=== PATIENT | female | born 1985 | race Caucasian/White ===

== ENCOUNTER 2017-03-14 08:33 | Emergency (ER) | payer BC ==
[~2017-03-14] VITALS: Ht 152.4 cm; Wt 73.5 kg
[2017-03-14] MEDS ORDERED: MORPHINE 4 MG/ML 1ML SYRINGE IV ONE (10:00)
[2017-03-14] MEDS ORDERED: NS 1,000 ML IV ONE (10:00)
[2017-03-14] MEDS ORDERED: ONDANSETRON 4MG/2ML VIAL (J2405) IV ONE (10:00)
[2017-03-14 10:02] LABS: BASO % 0.2 % (0.0-1.0); EOS % 0.4 % (0.0-3.0); LARGE UNSTAINED CELL # 0.1 K/mm3 (0.0-0.4); LARGE UNSTAINED CELL % 0.7 % (0.0-4.0); LYMPH # 0.4 K/mm3 (1.5-4.5); LYMPH % 5.2 % (24.0-44.0); MEAN CORPUSCULAR HEMOGLOBIN 32.7 pg (27.0-33.0); MEAN CORPUSCULAR HGB CONC 33.6 g/dl (32.0-36.5); MEAN CORPUSCULAR VOLUME 97.4 fl (80.0-96.0); MONO # 0.3 K/mm3 (0.0-0.8); MONO % 5.1 % (0.0-5.0); NEUTROPHILS % 88.5 % (36.0-66.0); PLATELET COUNT, AUTOMATED 303 k/mm3 (150-450); RED CELL DISTRIBUTION WIDTH 12.5 % (11.5-14.5); WHITE BLOOD COUNT 6.7 K/mm3 (4.0-10.0)
[2017-03-14 10:17] LABS: ALBUMIN 3.5 GM/DL (3.2-5.2); ALKALINE PHOSPHATASE 104 U/L (45-117); ALT/SGPT 21 U/L (12-78); AMYLASE 38 U/L (25-115); ANION GAP 11 MEQ/L (8-16); AST/SGOT 24 U/L (15-37); BILIRUBIN,DIRECT < 0.1 MG/DL (0.0-0.2); BILIRUBIN,TOTAL 0.4 MG/DL (0.2-1.0); BLOOD UREA NITROGEN 12 MG/DL (7-18); CALCIUM LEVEL 8.4 MG/DL (8.5-10.1); CARBON DIOXIDE LEVEL 24 MEQ/L (21-32); CHLORIDE LEVEL 108 MEQ/L (98-107); CREATININE FOR GFR 0.82 MG/DL (0.55-1.02); GLOMERULAR FILTRATION RATE > 60.0 (>60); GLUCOSE, FASTING 106 MG/DL (70-105); POTASSIUM SERUM 3.5 MEQ/L (3.5-5.1); SODIUM LEVEL 143 MEQ/L (136-145); TOTAL PROTEIN 7.4 GM/DL (6.4-8.2)
[2017-03-14 10:28] LABS: CONTROL LINE HCG INT CTR LINE PRESENT
[2017-03-14 10:32] LABS: MICROSCOPIC INDICATED? MAN YES (NO)
[2017-03-14 10:45] VITALS: BP 109/69
[2017-03-14] MEDS ORDERED: ZOFR4TAB3 PO (10:54)
[2017-03-14] MEDS ORDERED: CIPR500T89 PO (10:54)
[2017-03-14] MEDS ORDERED: CIPROFLOXACIN 500 MG TAB PO ONE (11:00)
[2017-03-14 12:51] LABS: BACTERIA, URINE LARGE AMOUNT; HYALINE CAST, URINE NONE SEEN /lpf (0-1); RBC, URINE 0-1 /hpf (0-3); SQUAMOUS EPITHELIAL CELL URINE MOD AMOUNT /hpf (SMALL AMT); WBC, URINE 20-30 /hpf (0-3)
[2017-03-14 12:52] LABS: MICROSCOPIC EXAM PERFORMED
== END 2017-03-14 11:27 | disposition home or self-care (01) ==
LOC: M ED 09:16
DX: N30.90 Cystitis, unspecified without hematuria (principal); N10 Acute pyelonephritis; E86.0 Dehydration
CPT/HCPCS: 80048; 80076; 81000; 82150; 83690; 84703; 85025; 96374; 96375; 99283; J2405

== ENCOUNTER → 2017-08-04 | Outpatient (REF) | payer BC ==
[~2017-08-04] MED LIST: CIPR-249 PO; CIPR500T3 PO; FERR325T16 PO; FLAG500T PO; NORCOTAB PO; ZOFR4TAB3 PO
== END ==
LOC: M LAB REF 12:19
PROVIDERS: ATTEND Nurse Practitioner Family
DX: R31.9 Hematuria, unspecified (principal)

== ENCOUNTER 2017-08-06 15:43 | Emergency (ER) | payer BC ==
[~2017-08-06] VITALS: Ht 152.4 cm; Wt 72.0 kg
[~2017-08-06 15:43] MED LIST changes: -CIPR500T3 PO; -FERR325T16 PO; -FLAG500T PO; -NORCOTAB PO
[2017-08-06] MEDS ORDERED: NS 1,000 ML IV ONE (17:15)
[2017-08-06 17:46] LABS: BASO % 0.6 % (0.0-1.0); EOS # 0.2 K/mm3 (0.0-0.50); EOS % 2.6 % (0.0-3.0); LARGE UNSTAINED CELL # 0.1 K/mm3 (0.0-0.4); LARGE UNSTAINED CELL % 1.8 % (0.0-4.0); LYMPH # 1.5 K/mm3 (1.5-4.5); LYMPH % 23.3 % (24.0-44.0); MEAN CORPUSCULAR HEMOGLOBIN 32.3 pg (27.0-33.0); MEAN CORPUSCULAR HGB CONC 34.2 g/dl (32.0-36.5); MEAN CORPUSCULAR VOLUME 94.5 fl (80.0-96.0); MONO # 0.2 K/mm3 (0.0-0.8); MONO % 3.8 % (0.0-5.0); NEUTROPHILS # 4.3 K/mm3 (1.8-7.7); NEUTROPHILS % 67.9 % (36.0-66.0); PLATELET COUNT, AUTOMATED 600 k/mm3 (150-450); RED CELL DISTRIBUTION WIDTH 12.8 % (11.5-14.5); WHITE BLOOD COUNT 6.3 K/mm3 (4.0-10.0)
[2017-08-06 18:05] LABS: CONTROL LINE HCG INT CTR LINE PRESENT
[2017-08-06 18:08] LABS: ANION GAP 5 MEQ/L (8-16); BLOOD UREA NITROGEN 11 MG/DL (7-18); CALCIUM LEVEL 9.2 MG/DL (8.5-10.1); CARBON DIOXIDE LEVEL 31 MEQ/L (21-32); CHLORIDE LEVEL 98 MEQ/L (98-107); GLOMERULAR FILTRATION RATE > 60.0 (>60); GLUCOSE, FASTING 90 MG/DL (70-105); POTASSIUM SERUM 3.7 MEQ/L (3.5-5.1); SODIUM LEVEL 134 MEQ/L (136-145)
[2017-08-06] MEDS ORDERED: CIPR500T3 PO (19:01)
[2017-08-06] MEDS ORDERED: FLAG500T PO (19:01)
[2017-08-06 19:06] VITALS: BP 147/95
== END 2017-08-06 19:12 | disposition home or self-care (01) ==
LOC: M ED 15:43
DX: R10.31 Right lower quadrant pain (principal); R11.0 Nausea; F41.9 Anxiety disorder, unspecified; F17.210 Nicotine dependence, cigarettes, uncomplicated

== ENCOUNTER 2017-09-17 18:33 | Inpatient (IN) | payer BC ==
[~2017-09-17] VITALS: Ht 152.4 cm; Wt 74.2 kg
[~2017-09-17 18:33] MED LIST changes: +CIPR500T3 PO; +FLAG500T PO
[2017-09-17] MEDS ORDERED: ONDANSETRON 4MG/2ML VIAL (J2405) IV ONE (19:45)
[2017-09-17] MEDS ORDERED: NS 1,000 ML IV ONE (19:45)
[2017-09-17] MEDS ORDERED: MORPHINE 4 MG/ML 1ML SYRINGE IV ONE ×2 (19:45→20:45)
[2017-09-17 19:46] LABS: BASO % 0.3 % (0.0-1.0); EOS % 0.5 % (0.0-3.0); IMMATURE GRANULOCYTE % 0.3 % (0-0); LYMPH # 1.5 10^3/uL (1.5-4.5); LYMPH % 18.6 % (24.0-44.0); MEAN CORPUSCULAR HEMOGLOBIN 31.9 pg (27.0-33.0); MEAN CORPUSCULAR HGB CONC 33.8 g/dl (32.0-36.5); MEAN CORPUSCULAR VOLUME 94.3 fl (80.0-96.0); MONO # 0.9 10^3/uL (0.0-0.8); MONO % 10.8 % (0.0-5.0); NEUTROPHILS # 5.5 10^3/uL (1.8-7.7); NEUTROPHILS % 69.5 % (36.0-66.0); PLATELET COUNT, AUTOMATED 324 10^3/uL (150-450); RED CELL DISTRIBUTION WIDTH 13.2 % (11.5-14.5); WHITE BLOOD COUNT 7.9 10^3/uL (4.0-10.0)
[2017-09-17 20:11] LABS: ALBUMIN/GLOBULIN RATIO 0.95 (1.00-1.93); ALKALINE PHOSPHATASE 96 U/L (45-117); ALT/SGPT 30 U/L (12-78); AMYLASE 55 U/L (25-115); ANION GAP 9 MEQ/L (8-16); AST/SGOT 23 U/L (7-37); BILIRUBIN,DIRECT 0.2 MG/DL (0.0-0.2); BILIRUBIN,TOTAL 0.6 MG/DL (0.2-1.0); BLOOD UREA NITROGEN 11 MG/DL (7-18); CARBON DIOXIDE LEVEL 26 MEQ/L (21-32); CHLORIDE LEVEL 101 MEQ/L (98-107); CREATININE FOR GFR 0.74 MG/DL (0.55-1.02); GLOMERULAR FILTRATION RATE > 60.0 (>60); GLUCOSE, FASTING 97 MG/DL (70-105); POTASSIUM SERUM 3.5 MEQ/L (3.5-5.1); SODIUM LEVEL 136 MEQ/L (136-145); TOTAL PROTEIN 8.2 GM/DL (6.4-8.2)
[2017-09-17 20:28] LABS: CONTROL LINE HCG INT CTR LINE PRESENT
[2017-09-17] MEDS ORDERED: METOCLOPRAMIDE INJ 10MG/2ML VIAL (J2765) IV ONE (20:45)
[2017-09-17] MEDS ORDERED: ISOVUE-370 76% 100ML VIAL (Q9967) As Ordered ONE (21:18)
--- NOTE | 2017-09-17 22:30 | REPUSA ---
CLINICAL HISTORY: Abdominal pain. TECHNIQUE: Multiple axial, sagittal and coronal CT images were obtained through the abdomen and pelvi s after administration of intravenous contrast material. COMMENTS: 6 mm hypodensity is noted in the right hepatic lobe compatible with small hemangioma. The liver is o f uniform attenuation without mass or defect. There is no intra or extrahepatic biliary ductal dilata tion. The spleen is normal. The gallbladder is within normal limits. The pancreas is of normal contou r and attenuation characteristics. There is no evidence of adrenal mass. Both kidneys demonstrate prompt and equal nephrograms. The kidneys are normal in size, shape and conf iguration. There is no evidence of renal or ureteral mass. No renal or ureteral calculi are identifie d. There is no hydroureter or hydronephrosis. Tubular fluid-filled structure is noted in the RLQ with adjacent stranding compatible with acute appe ndicitis. No abscess or rupture is noted. There is no bowel wall thickening. No evidence for small o r large bowel obstruction. There is no evidence of abdominal ascites or lymphadenopathy. There is no evidence of intrinsic or extrinsic bladder mass. There is no pelvic ascites or lymphadeno celeste. The uterus is WNL. Bilateral ovarial follicular cysts are noted. Images of the lung bases show no evidence of pleural or parenchymal mass. There are no pleural effusi ons. The bony structures are free of lytic or blastic lesions. IMPRESSION: Acute appendicitis. Thank you for your kind referral of this patient.
[2017-09-17] MEDS ORDERED: metroNIDAZOLE 500 MG in APPROPRIATE DILUENT 1 EA IV ONE (22:45)
[2017-09-17] MEDS ORDERED: CIPROFLOXACIN 400 MG in APPROPRIATE DILUENT 1 EA IV ONE (22:45)
[2017-09-17] MEDS ORDERED: MORPHINE 4 MG/ML 1ML SYRINGE IV PRN (23:00)
[2017-09-17] MEDS ORDERED: ONDANSETRON 4MG/2ML VIAL (J2405) IV PRN (23:00)
[2017-09-17] MEDS ORDERED: ACETAMINOPHEN TAB 650MG DOSE (2X325MG) PO PRN (23:00)
[2017-09-18] VITALS (8 sets, daily range): BP systolic 109–140; BP diastolic 64–93
[2017-09-18] MEDS: LR 1,000 ML IV SCH ×4 (02:00→19:46)
[2017-09-18] MEDS: NORCO, ANEXSIA 5/325MG TABLET (HYDROcodone/ACETAMINOPHEN) PO PRN ×2 (02:01→22:19)
[2017-09-18] MEDS: PANTOPRAZOLE 40MG INJ (PROTONIX) (C9113) IV SCH (08:29)
[2017-09-18] MEDS ORDERED: ENOXAPARIN 40 MG/0.4 ML SYRINGE (J1650) SC SCH (09:00)
--- NOTE | 2017-09-18 12:22 | HPEPDOC ---
General Surgery H&P Date of Admission Sep 17, 2017 History and Physical CHIEF COMPLAINT: right lower quadrant pain HISTORY OF PRESENT ILLNESS: 32 F who last summer had lower abdominal pain and was treated for UTI which resolved her pain with antibiotics. This would recur back in June when she presented herself to her medical doctor and she was re started on antibiotics. When it did not improve, a CT scan of the abdomen and pelvis was done where an inflamed appendix was visualized. She was sent to the ED but by the time she was there, her abdominal symptoms have resolved. She was seen by Dr. Riojas and was determined at least not to have an acutely inflamed appendix. She went home and had follow up with him with repeat CT showing improvement of the inflammation around the appendix. She remained asymptomatic. Interval appendectomy was discussed but was decided to hold off depending on her symptoms. She presented to the ER yesterday with a few hours of sudden onset right lower quadrant abdominal pain and nausea and presented herself to the ER. ALLERGIES: Please see below. HOME MEDICATIONS: Please see below. PAST MEDICAL HISTORY: None reported PAST SURGICAL HISTORY: Nose surgery PERSONAL/SOCIAL HISTORY: Denies smoking, alcohol use, or recreational drug use. REVIEW OF SYSTEMS: GENERAL: Denies chills, fatigue, fever, weight gain and weight loss. HEENT: Denies blurred vision and double vision. Denies ear symptoms. Denies hoarseness. NECK: Denies any neck pain. CARDIOVASCULAR: Denies chest pain and palpitations. MUSCULOSKELETAL: Denies arthralgias, back pain and thrombophlebitis. SKIN: Denies rash. NEUROLOGIC: Denies headache, stroke and transient ischemic attack. PSYCHIATRIC: Denies anxiety and depression. ENDOCRINE: Denies thyroid disease. HEMATOLOGY/ONCOLOGY: Denies any bleeding or clotting disorder. HEART: Denies any chest pains, palpitations, paroxysmal dyspnea, orthopnea. PULMONARY: Denies chronic cough, dyspnea and wheezing. GASTROINTESTINAL: Denies rectal bleeding, family history of colon cancer, constipation, diarrhea, dysphagia, heartburn and jaundice. GENITOURINARY: Denies dysuria, frequency, hematuria and nocturia. ENDOCRINE: Denies polydipsia, polyphagia, polyuria, heat or cold intolerance. INFECTIOUS: Denies any recent upper respiratory tract infection, UTI, need for use of antibiotics. NUTRITION: Reports good appetite. PHYSICAL EXAMINATION: VITAL SIGNS: Please see below. GENERAL APPEARANCE: Patient seen at bedside, appears comfortable. Awake, alert, oriented. HEENT: Normocephalic, atraumatic. [place] palpebral conjunctivae. Anicteric sclerae. Lips moist. CHEST: No chest wall abnormalities. Normal respiratory motion/effort. NECK: Supple. No thyromegaly. No lymphadenopathies. LUNGS: Lung sounds are clear to auscultation bilaterally. No wheezing appreciated. HEART: No chest wall abnormalities. Heart rate and rhythm are regular with no murmurs. ABDOMEN: Abdomen is obese, soft, slightly rounded. No hepatosplenomegaly. No umbilical or groin herniations, nondistended. Mildly tender around the right lower quadrant area SKIN: Warm, moist. Several scaly macular patches/rash throughout body EXTREMITIES: Extremities have no deformities. No edema identified. NEUROLOGICAL: . ANCILLARIES: . LABORATORY DATA: Please see below. MICROBIOLOGY: Please see below. IMAGING: CT scan of abdomen and pelvis Both kidneys demonstrate prompt and equal nephrograms. The kidneys are normal in size, shape and configuration. There is no evidence of renal or ureteral mass. No renal or ureteral calculi are identified. There is no hydroureter or hydronephrosis. Tubular fluid-filled structure is noted in the RLQ with adjacent stranding compatible with acute appendicitis. No abscess or rupture is noted. There is no bowel wall thickening. No evidence for small or large bowel obstruction. There is no evidence of abdominal ascites or lymphadenopathy. IMPRESSION AND PLAN: Chronic appendicitis Her symptoms have been ongoing intermittently for the past 3 months and probably was treated and responded transiently with antibiotics when she was given initial antibiotics for presumed UTI. Given that she would have intermittent symptoms, I recommend performing appendectomy. I discussed with her the details of the procedure, risks and benefits. Her concerns were addressed during my conversation with her. She has consented to have a laparoscopic appendectomy done. Vital Signs Vital Signs Date Time Temp Pulse Resp B/P (MAP) Pulse Ox O2 Delivery O2 Flow Rate FiO2 09/18/17 08:00 98.9 104 16 121/79 (93) 98 Room Air I&Os I&O- Last 24 Hours up to 6 AM 09/19/17 06:00 Intake Total 0 ml Balance 0 ml Laboratory Data Labs 24H Laboratory Tests 2 09/17/17 19:25: Immature Granulocyte % (Auto) 0.3H, White Blood Count 7.9, Red Blood Count 4.05 , Hemoglobin 12.9, Hematocrit 38.2, Mean Corpuscular Volume 94.3, Mean Corpuscular Hemoglobin 31.9, Mean Corpuscular Hemoglobin Concent 33.8, Red Cell Distribution Width 13.2, Platelet Count 324, Neutrophils (%) (Auto) 69.5H, Lymphocytes (%) (Auto) 18.6L, Monocytes (%) (Auto) 10.8H, Eosinophils (%) (Auto ) 0.5, Basophils (%) (Auto) 0.3, Neutrophils # (Auto) 5.5, Lymphocytes # (Auto) 1.5, Monocytes # (Auto) 0.9H, Eosinophils # (Auto) 0.0, Basophils # (Auto) 0.0, Immature Granulocyte # (Auto) 0.0, Nucleated Red Blood Cells % (auto) 0.0, Anion Gap 9, Glomerular Filtration Rate > 60.0, Lactic Acid Level 1.7, Calcium Level 9.0, Aspartate Amino Transf (AST/SGOT) 23, Alanine Aminotransferase (ALT/ SGPT) 30, Alkaline Phosphatase 96, Total Bilirubin 0.6, Direct Bilirubin 0.2, Total Protein 8.2, Albumin 4.0, Albumin/Globulin Ratio 0.95L, Amylase Level 55, Lipase 174, Human Chorionic Gonadotropin, Qual NEGATIVE 09/17/17 21:52: Urine Appearance CLOUDYH, Urine Color YELLOW, Urine pH 5.0, Urine Specific [place] >1.060H, Urine Protein NEGATIVE, Urine Glucose (UA) NEGATIVE, Urine Ketones 2+H, Urine Urobilinogen 0.2, Urine Bilirubin NEGATIVE, Urine Leukocyte Esterase NEGATIVE, Urine Blood NEGATIVE, Urine Nitrite NEGATIVE, Urine WBC (Auto ) 2, Urine RBC (Auto) 4H, Urine Hyaline Casts (Auto) 0, Urine Bacteria (Auto) NEGATIVE, Urine Squamous Epithelial Cells 111, Urine Mucus (Auto) SMALL, Urine Sperm (Auto) CBC/BMP Laboratory Tests 09/17/17 19:25 Red Blood Count 4.05, Mean Corpuscular Volume 94.3, Mean Corpuscular Hemoglobin 31.9, Mean Corpuscular Hemoglobin Concent 33.8, Red Cell Distribution Width 13.2 , Neutrophils (%) (Auto) 69.5 H, Lymphocytes (%) (Auto) 18.6 L, Monocytes (%) ( Auto) 10.8 H, Eosinophils (%) (Auto) 0.5, Basophils (%) (Auto) 0.3, Neutrophils # (Auto) 5.5, Lymphocytes # (Auto) 1.5, Monocytes # (Auto) 0.9 H, Eosinophils # (Auto) 0.0, Basophils # (Auto) 0.0 Home Medications No Active Prescriptions or Reported Meds Allergies Coded Allergies: No Known Drug Allergy (Verified Allergy, Unknown, 03/14/17) ZULEIKA SALGADO MD Sep 18, 2017 12:22
[2017-09-18] MEDS ORDERED: LIDOCAINE 1% SDV INJ 30 ML VIAL As Ordered ONE (12:57)
[2017-09-18] MEDS ORDERED: BUPIVACAINE HCL 0.25% 30 ML VIAL As Ordered ONE (12:57)
[2017-09-18] MEDS ORDERED: MIDAZOLAM INJ 2 MG/2 ML VIAL (J2250) As Ordered ONE (15:37)
[2017-09-18] MEDS ORDERED: fentaNYL 100 MCG/2 ML INJECTION (J3010) As Ordered ONE (15:37)
[2017-09-18] MEDS ORDERED: DESFLURANE 240 ML INHALANT As Ordered ONE (15:46)
[2017-09-18] MEDS ORDERED: metroNIDAZOLE/NACL 500MG(5MG/ML)100 ML BAG (S0030) As Ordered ONE (17:02)
[2017-09-18] MEDS ORDERED: CIPROFLOXACIN/D5W 400 MG/200 ML BAG (J0744) As Ordered ONE (17:02)
[2017-09-18] MEDS ORDERED: NEOSTIGMINE 10 MG/10 ML VIAL (J2710) As Ordered ONE (17:15)
[2017-09-18] MEDS ORDERED: GLYCOPYRROLATE INJ 0.2 MG/ML 2 ML VIAL As Ordered ONE (17:15)
[2017-09-18] MEDS ORDERED: HYDROmorphone HCL 2 MG/ML 1ML VIAL (J1170) As Ordered ONE (17:15)
--- NOTE | 2017-09-18 18:47 | ROOPDOC ---
[facility] Report Of Operation Report of Operation DATE OF PROCEDURE: 09/18/17 PREPROCEDURE DIAGNOSES: Acute over chronic appendicitis. POSTPROCEDURE DIAGNOSES: Chronic appendicitis. PROCEDURE: Laparoscopic appendectomy. SURGEON: Jorge Huang MD PROTOCOL MANAGER: Jorge Farias DO ANESTHESIA: general anesthesia ESTIMATED BLOOD LOSS: Approximately 50 mL. COMPLICATIONS: none REMARKS: Chronically inflamed appendix with thickened shortened mesal appendix. We had some difficulty controlling the abdomen mesal artery G to the brittleness of the mesal appendix.. PROCEDURE NOTE: 32 F with intermittent right lower qudrant pain for the past 3 months, presented to ER last night with recurrence of abdominal pain, swelling and inflammation of her appendix. Previously had CT documenting the swelling of the appendix for the past 2 months at least but was not symptomatic at that time so no surgery was done. DESCRIPTION OF PROCEDURE: ZULEIKA HUANG MD Sep 18, 2017 18:47
[2017-09-18] MEDS ORDERED: PERCOCET 5MG/325MG TAB PO PRN (19:00)
[2017-09-18] MEDS ORDERED: ALBUTEROL SULFATE 2.5 MG/0.5 ML INH NEB SOLN INH SCH (19:00)
[2017-09-18] MEDS ORDERED: fentaNYL 100 MCG/2 ML INJECTION (J3010) IV PRN (19:00)
[2017-09-18] MEDS ORDERED: METOCLOPRAMIDE INJ 10MG/2ML VIAL (J2765) IV PRN (19:00)
[2017-09-18] MEDS ORDERED: ONDANSETRON 4MG/2ML VIAL (J2405) IV PRN (19:00)
[2017-09-18] MEDS ORDERED: LR 1,000 ML IV SCH (19:00)
[2017-09-19] VITALS (7 sets, daily range): BP systolic 110–136; BP diastolic 61–77
[2017-09-19] MEDS: metroNIDAZOLE 500 MG in APPROPRIATE DILUENT 1 EA IV SCH ×3 (00:35→17:21)
[2017-09-19] MEDS: LR 1,000 ML IV SCH (03:21)
[2017-09-19] MEDS ORDERED: MAALOX 30 ML SUSP *UDC PO PRN (04:00)
[2017-09-19] MEDS: CIPROFLOXACIN 400 MG in APPROPRIATE DILUENT 1 EA IV SCH ×2 (04:18→16:15)
[2017-09-19] MEDS: NORCO, ANEXSIA 5/325MG TABLET (HYDROcodone/ACETAMINOPHEN) PO PRN ×3 (04:20→16:15)
[2017-09-19 06:45] LABS: BASO % 0.1 % (0.0-1.0); IMMATURE GRANULOCYTE % 0.7 % (0-0); LYMPH # 0.6 10^3/uL (1.5-4.5); LYMPH % 5.5 % (24.0-44.0); MEAN CORPUSCULAR HEMOGLOBIN 31.9 pg (27.0-33.0); MEAN CORPUSCULAR HGB CONC 33.5 g/dl (32.0-36.5); MEAN CORPUSCULAR VOLUME 95.3 fl (80.0-96.0); MONO # 0.9 10^3/uL (0.0-0.8); MONO % 7.7 % (0.0-5.0); PLATELET COUNT, AUTOMATED 292 10^3/uL (150-450); RED CELL DISTRIBUTION WIDTH 12.9 % (11.5-14.5); WHITE BLOOD COUNT 11.6 10^3/uL (4.0-10.0)
[2017-09-19 07:03] LABS: ANION GAP 12 MEQ/L (8-16); BLOOD UREA NITROGEN 11 MG/DL (7-18); CALCIUM LEVEL 8.7 MG/DL (8.5-10.1); CARBON DIOXIDE LEVEL 21 MEQ/L (21-32); CHLORIDE LEVEL 101 MEQ/L (98-107); CREATININE FOR GFR 0.67 MG/DL (0.55-1.02); GLOMERULAR FILTRATION RATE > 60.0 (>60); GLUCOSE, FASTING 127 MG/DL (70-105); SODIUM LEVEL 134 MEQ/L (136-145)
[2017-09-19] MEDS: PANTOPRAZOLE 40MG INJ (PROTONIX) (C9113) IV SCH (08:21)
[2017-09-19] MEDS ORDERED: INFLUENZA QUADRIVALENT PF VACCINE 0.5ML SYRINGE (90686) IM ONE (09:00)
[2017-09-20] VITALS (11 sets, daily range): BP systolic 112–135; BP diastolic 61–84
[2017-09-20] MEDS: metroNIDAZOLE 500 MG in APPROPRIATE DILUENT 1 EA IV SCH ×3 (00:44→18:34)
[2017-09-20] MEDS: CIPROFLOXACIN 400 MG in APPROPRIATE DILUENT 1 EA IV SCH ×2 (04:33→16:10)
[2017-09-20 06:21] LABS: MEAN CORPUSCULAR HEMOGLOBIN 32.2 pg (27.0-33.0); MEAN CORPUSCULAR VOLUME 94.7 fl (80.0-96.0); PLATELET COUNT, AUTOMATED 193 10^3/uL (150-450); RED CELL DISTRIBUTION WIDTH 13.4 % (11.5-14.5); WHITE BLOOD COUNT 4.9 10^3/uL (4.0-10.0)
[2017-09-20] MEDS: NORCO, ANEXSIA 5/325MG TABLET (HYDROcodone/ACETAMINOPHEN) PO PRN ×3 (06:27→20:20)
[2017-09-20 06:48] LABS: BLOOD UREA NITROGEN 10 MG/DL (7-18); CARBON DIOXIDE LEVEL 26 MEQ/L (21-32); CHLORIDE LEVEL 104 MEQ/L (98-107); CREATININE FOR GFR 0.75 MG/DL (0.55-1.02); GLOMERULAR FILTRATION RATE > 60.0 (>60); GLUCOSE, FASTING 104 MG/DL (70-105)
[2017-09-20 07:02] LABS: ANION GAP 9 MEQ/L (8-16); SODIUM LEVEL 139 MEQ/L (136-145)
[2017-09-20] MEDS: PANTOPRAZOLE 40MG INJ (PROTONIX) (C9113) IV SCH (08:38)
--- NOTE | 2017-09-20 09:43 | IPNPDOC ---
Subjective General Date/Time Seen The patient was seen on 09/20/17 at 09:34. Subject Chief Complaint/History The patient is a 32-year-old female admitted with a reason for visit of Chronic Appendicitis. Patient hemodynamically stable but Hgb and Hct continues to trend down with continued bloody drainage from the AIDE drain. Denies abdominal discomfort Current Medications Current Medications Current Medications Acetaminophen (Tylenol Tab) 650 mg Q4HP PRN PO MILD PAIN or TEMP > 101; Start 09/17/17 at 23:00; Stop 10/17/17 at 22:59 Acetaminophen/ Hydrocodone Bitart ([place], Anexsia 5/325) 1 tab Q4HP PRN PO MODERATE PAIN (PS 5-7) Last administered on 09/20/17 06:27; Start 09/17/17 at 23:00; Stop 09/24/17 at 22:59 Acetaminophen/ Hydrocodone Bitart ([place], Anexsia 5/325) 2 tab Q6HP PRN PO SEVERE PAIN (PS 8-10) Last administered on 09/19/17 10:30; Start 09/17/17 at 23 :00; Stop 09/24/17 at 22:59 Al Hydrox/Mg Hydrox/Simethicone (Mylanta) 30 ml Q6HP PRN PO HEARTBURN Last administered on 09/19/17 04:18; Start 09/19/17 at 04:00; Stop 10/19/17 at 03:59 Albuterol Sulfate (Proventil Neb) 1.25 mg ASDIRECTED INH ; Start 09/18/17 at 19: 00; Stop 09/18/17 at 20:00; Status DC Ciprofloxacin 400 mg/IV Miscellaneous Supplies 200 ml @ 200 mls/hr Q12H IV Last administered on 09/20/17 04:33; Start 09/19/17 at 05:00; Stop 09/26/17 at 04:59 Enoxaparin Sodium (Lovenox) 40 mg DAILY SC Last administered on 09/18/17 08:29 ; Start 09/18/17 at 09:00; Stop 09/19/17 at 03:55; Status DC Fentanyl Citrate (Sublimaze) 25 mcg Q5MP PRN IV MODERATE PAIN (PS 4-7); Start 09/18/17 at 19:00; Stop 09/18/17 at 20:00; Status DC Home Med (Med Rec Complete!) ASDIRECTED XX ; Start 09/17/17 at 23:15; Stop 09/17/17 at 23:15; Status DC Lactated Ringer's 1,000 ml @ 100 mls/hr Q10H IV ; Start 09/18/17 at 19:00; Stop 09/18/17 at 20:00; Status DC Lactated Ringer's 1,000 ml @ 125 mls/hr Q8H IV Last administered on 09/19/17 03:21; Start 09/17/17 at 22:50; Stop 09/19/17 at 13:28; Status DC Metoclopramide HCl (REGLAN INJection) 10 mg Q6HP PRN IV NAUSEA OR VOMITING; Start 09/18/17 at 19:00; Stop 09/18/17 at 20:00; Status DC Metronidazole 500 mg/IV Miscellaneous Supplies 100 ml @ 100 mls/hr Q8H IV Last administered on 09/20/17 08:38; Start 09/19/17 at 01:00; Stop 09/26/17 at 00:59 Morphine Sulfate (Morphine Sulfate Inj) 4 mg Q2HP PRN IV SEVERE PAIN (PS 8-10) ; Start 09/17/17 at 23:00; Stop 09/24/17 at 22:59 Ondansetron HCl (ZOFRAN INJection) 4 mg Q4HP PRN IV NAUSEA OR VOMITING; Start 09/18/17 at 19:00; Stop 09/18/17 at 20:00; Status DC Ondansetron HCl (ZOFRAN INJection) 4 mg Q6HP PRN IV NAUSEA OR VOMITING; Start 09/17/17 at 23:00; Stop 10/17/17 at 22:59 Oxycodone/ Acetaminophen (Percocet 5mg/ 325mg Tablet) 1 tab ASDIRECTED PRN PO MILD/MODERATE PAIN (PS 1-7); Start 09/18/17 at 19:00; Stop 09/18/17 at 20:00; Status DC Pantoprazole Sodium (Protonix) 40 mg DAILY IV Last administered on 09/20/17 08 :38; Start 09/18/17 at 09:00; Stop 10/18/17 at 08:59 Allergies Coded Allergies: No Known Drug Allergy (Verified Allergy, Unknown, 03/14/17) Objective Physical Examination Examination GENERAL APPEARANCE:Patient seen, laying in bed, awake, alert, and oriented. Comfortable, in no acute distress. SKIN: Warm and moist. HEENT: Normocephalic, atraumatic. [place] palpebral conjunctiva, anicteric sclerae. Lips and mucosa appear moist. NECK: Supple, no thyromegaly. No obvious jugular venous distention. LUNGS: Clear to auscultation bilaterally. No wheezing appreciated. HEART: No chest wall abnormalities. Regular rate and rhythm with no murmurs appreciated. ABDOMEN: Abdomen is round, soft, minimally distended. Left AIDE drain with bright red bloody drainage, no clot, minimally tender on left side, nontender on right side. EXTREMITIES: Extremities have no deformities. No edema identified. Vital Signs Vital Signs Date Time Temp Pulse Resp B/P (MAP) Pulse Ox O2 Delivery O2 Flow Rate FiO2 09/20/17 06:57 16 09/20/17 06:00 99.1 102 126/81 (96) 97 Room Air 09/18/17 18:41 10 I&Os I&O- Last 24 Hours up to 6 AM 09/21/17 06:00 Output Total 60 ml Balance -60 ml Laboratory Data Labs 24H Laboratory Tests 2 09/20/17 06:11: Nucleated Red Blood Cells % (auto) 0.0 09/20/17 06:12: Anion Gap 9, Glomerular Filtration Rate > 60.0, Blood Urea Nitrogen 10, Creatinine 0.75, Sodium Level 139, Potassium Level 3.0#L, Chloride Level 104, Carbon Dioxide Level 26, Calcium Level 8.0L CBC/BMP Laboratory Tests 09/19/17 12:13 09/20/17 06:11 Red Blood Count 2.08 L, Mean Corpuscular Volume 94.7, Mean Corpuscular Hemoglobin 32.2, Mean Corpuscular Hemoglobin Concent 34.0, Red Cell Distribution Width 13.4 09/20/17 06:12 Calcium Level 8.0 L Impression POD2 after Laparoscopic Appendectomy for Chronic Appendicitis Postop bleeding -mesoappendix was friable so appendiceal artery may have retracted into the mesentery and only temporarily being contolled. Given continued bleeding, will perform diagnostic laparoscopy to localize bleeder. She will get 2 u prbc. Hold lovenox Plan / VTE VTE Prophylaxis Ordered?: No VTE Exclusion Pharmacological: Other ZULEIKA SALGADO MD Sep 20, 2017 09:43
[2017-09-20] MEDS ORDERED: LIDOCAINE 1% SDV INJ 30 ML VIAL As Ordered ONE (14:51)
[2017-09-20] MEDS ORDERED: BUPIVACAINE HCL 0.25% 30 ML VIAL As Ordered ONE (14:51)
[2017-09-20] MEDS ORDERED: KETOROLAC 60 MG/2 ML VIAL (J1885) As Ordered ONE (14:52)
[2017-09-20] MEDS ORDERED: PROPOFOL 200 MG/20 ML VIAL As Ordered ONE ×2 (14:52→19:39)
[2017-09-20] MEDS ORDERED: dexameTHASONE 4 MG/ML 1ML VIAL (J1100) As Ordered ONE (14:52)
[2017-09-20] MEDS ORDERED: LIDOCAINE 2% INJ 100 MG/5 ML SDV (FOR ANES.) As Ordered ONE (14:52)
[2017-09-20] MEDS ORDERED: ONDANSETRON 4MG/2ML VIAL (J2405) As Ordered ONE (14:52)
[2017-09-20] MEDS ORDERED: fentaNYL 250 MCG/5 ML INJECTION (J3010) As Ordered ONE (14:52)
[2017-09-20] MEDS ORDERED: CIPROFLOXACIN/D5W 400 MG/200 ML BAG (J0744) As Ordered ONE (16:08)
[2017-09-20] MEDS ORDERED: metroNIDAZOLE/NACL 500MG(5MG/ML)100 ML BAG (S0030) As Ordered ONE (17:12)
[2017-09-20] MEDS ORDERED: NEOSTIGMINE 10 MG/10 ML VIAL (J2710) As Ordered ONE (18:57)
[2017-09-20] MEDS ORDERED: ROCURONIUM BROMIDE 50 MG/5 ML VIAL/SYRINGE As Ordered ONE (18:57)
[2017-09-20] MEDS ORDERED: GLYCOPYRROLATE INJ 0.2 MG/ML 2 ML VIAL As Ordered ONE (18:57)
--- NOTE | 2017-09-20 19:45 | ROOPDOC ---
[facility] Report Of Operation Report of Operation DATE OF PROCEDURE: 09/20/17 PREPROCEDURE DIAGNOSES: Postoperative bleeding. POSTPROCEDURE DIAGNOSES: Postop bleed at mesoappendix mesentery. PROCEDURE: Diagnostic Laparoscopy, evacuation of hematoma, . SURGEON: Jorge Huang MD FAST FOOD COOK: ANESTHESIA: general anesthesia. ESTIMATED BLOOD LOSS: Approximately 10 mL. COMPLICATIONS: none. REMARKS: large clotted hematoma evacuated along right gutter behind cecum. No active bleeding found. PROCEDURE NOTE: 32 F who had appendectomy done 2 days ago continued to have bloody drainage from her AIDE drain, with drop of her Hgb.. DESCRIPTION OF PROCEDURE: ZULEIKA HUANG MD Sep 20, 2017 18:32
[2017-09-20] MEDS ORDERED: LR 1,000 ML IV SCH (20:15)
[2017-09-20] MEDS ORDERED: MEPERIDINE INJ 25 MG/ML VIAL (J2175) IV PRN (20:15)
[2017-09-20] MEDS ORDERED: fentaNYL 100 MCG/2 ML INJECTION (J3010) IV PRN (20:15)
[2017-09-20] MEDS ORDERED: ONDANSETRON 4MG/2ML VIAL (J2405) IV PRN (20:15)
[2017-09-20] MEDS ORDERED: NORCO, ANEXSIA 5/325MG TABLET (HYDROcodone/ACETAMINOPHEN) As Ordered ONE (20:21)
[2017-09-21] MEDS: metroNIDAZOLE 500 MG in APPROPRIATE DILUENT 1 EA IV SCH ×3 (00:28→16:55)
[2017-09-21 00:40] VITALS: BP 122/71
[2017-09-21 01:40] VITALS: BP 104/54
[2017-09-21 05:41] VITALS: BP 124/71
[2017-09-21] MEDS: CIPROFLOXACIN 400 MG in APPROPRIATE DILUENT 1 EA IV SCH ×2 (05:41→18:17)
[2017-09-21 06:23] LABS: BASO % 0.1 % (0.0-1.0); IMMATURE GRANULOCYTE % 0.5 % (0-0); LYMPH # 0.5 10^3/uL (1.5-4.5); LYMPH % 4.8 % (24.0-44.0); MEAN CORPUSCULAR HEMOGLOBIN 32.8 pg (27.0-33.0); MEAN CORPUSCULAR HGB CONC 35.1 g/dl (32.0-36.5); MEAN CORPUSCULAR VOLUME 93.6 fl (80.0-96.0); MONO # 0.5 10^3/uL (0.0-0.8); MONO % 4.6 % (0.0-5.0); NEUTROPHILS # 8.8 10^3/uL (1.8-7.7); PLATELET COUNT, AUTOMATED 221 10^3/uL (150-450); WHITE BLOOD COUNT 9.8 10^3/uL (4.0-10.0)
[2017-09-21 06:52] LABS: ANION GAP 11 MEQ/L (8-16); BLOOD UREA NITROGEN 11 MG/DL (7-18); CALCIUM LEVEL 8.2 MG/DL (8.5-10.1); CARBON DIOXIDE LEVEL 22 MEQ/L (21-32); CHLORIDE LEVEL 103 MEQ/L (98-107); CREATININE FOR GFR 0.55 MG/DL (0.55-1.02); GLOMERULAR FILTRATION RATE > 60.0 (>60); GLUCOSE, FASTING 122 MG/DL (70-105); SODIUM LEVEL 136 MEQ/L (136-145)
[2017-09-21 06:58] LABS: POTASSIUM SERUM 3.7 MEQ/L (3.5-5.1)
[2017-09-21] MEDS: PANTOPRAZOLE 40MG INJ (PROTONIX) (C9113) IV SCH (08:32)
[2017-09-21 14:00] VITALS: BP 122/62
[2017-09-21 20:30] VITALS: BP 133/80
[2017-09-22] VITALS: BP 123/64
[2017-09-22] MEDS: metroNIDAZOLE 500 MG in APPROPRIATE DILUENT 1 EA IV SCH ×2 (01:42→08:16)
[2017-09-22] MEDS: CIPROFLOXACIN 400 MG in APPROPRIATE DILUENT 1 EA IV SCH (05:33)
[2017-09-22 07:03] LABS: MEAN CORPUSCULAR HEMOGLOBIN 31.6 pg (27.0-33.0); MEAN CORPUSCULAR HGB CONC 33.2 g/dl (32.0-36.5); MEAN CORPUSCULAR VOLUME 95.2 fl (80.0-96.0); PLATELET COUNT, AUTOMATED 258 10^3/uL (150-450); RED CELL DISTRIBUTION WIDTH 14.2 % (11.5-14.5)
[2017-09-22 08:00] VITALS: BP 144/89
[2017-09-22] MEDS: PANTOPRAZOLE 40MG INJ (PROTONIX) (C9113) IV SCH (08:16)
--- NOTE | 2017-09-22 09:47 | IPNPDOC ---
Subjective General Date/Time Seen The patient was seen on 09/22/17 at 09:43. Subject Chief Complaint/History The patient is a 32-year-old female admitted with a reason for visit of Chronic Appendicitis. She reports she's feeling well. The AIDE drainage is still mildly bloody but has markedly decreased in amount overnight. Tolerating regular diet. Current Medications Current Medications Current Medications Acetaminophen (Tylenol Tab) 650 mg Q4HP PRN PO MILD PAIN or TEMP > 101 Last administered on 09/21/17 12:19; Start 09/17/17 at 23:00; Stop 10/17/17 at 22:59 Acetaminophen/ Hydrocodone Bitart ([place], Anexsia 5/325) 1 tab Q4HP PRN PO MODERATE PAIN (PS 5-7) Last administered on 09/20/17 20:20; Start 09/17/17 at 23:00; Stop 09/24/17 at 22:59 Acetaminophen/ Hydrocodone Bitart ([place], Anexsia 5/325) 2 tab Q6HP PRN PO SEVERE PAIN (PS 8-10) Last administered on 09/20/17 11:23; Start 09/17/17 at 23 :00; Stop 09/24/17 at 22:59 Al Hydrox/Mg Hydrox/Simethicone (Mylanta) 30 ml Q6HP PRN PO HEARTBURN Last administered on 09/19/17 04:18; Start 09/19/17 at 04:00; Stop 10/19/17 at 03:59 Albuterol Sulfate (Proventil Neb) 1.25 mg ASDIRECTED INH ; Start 09/18/17 at 19: 00; Stop 09/18/17 at 20:00; Status DC Ciprofloxacin 400 mg/IV Miscellaneous Supplies 200 ml @ 200 mls/hr Q12H IV Last administered on 09/22/17 05:33; Start 09/19/17 at 05:00; Stop 09/26/17 at 04:59 Enoxaparin Sodium (Lovenox) 40 mg DAILY SC Last administered on 09/18/17 08:29 ; Start 09/18/17 at 09:00; Stop 09/19/17 at 03:55; Status DC Fentanyl Citrate (Sublimaze) 25 mcg Q5MP PRN IV MODERATE PAIN (PS 4-7); Start 09/18/17 at 19:00; Stop 09/18/17 at 20:00; Status DC Fentanyl Citrate (Sublimaze) 25 mcg Q5MP PRN IV MODERATE PAIN (PS 4-7); Start 09/20/17 at 20:15; Stop 09/20/17 at 21:45; Status DC Home Med (Med Rec Complete!) ASDIRECTED XX ; Start 09/17/17 at 23:15; Stop 09/17/17 at 23:15; Status DC Lactated Ringer's 1,000 ml @ 100 mls/hr Q10H IV ; Start 09/18/17 at 19:00; Stop 09/18/17 at 20:00; Status DC Lactated Ringer's 1,000 ml @ 100 mls/hr Q10H IV ; Start 09/20/17 at 20:15; Stop 09/20/17 at 21:45; Status DC Lactated Ringer's 1,000 ml @ 125 mls/hr Q8H IV Last administered on 09/19/17 03:21; Start 09/17/17 at 22:50; Stop 09/19/17 at 13:28; Status DC Meperidine HCl (Demerol) 12.5 mg Q5MP PRN IV SHIVERING; Start 09/20/17 at 20:15 ; Stop 09/20/17 at 21:45; Status DC Metoclopramide HCl (REGLAN INJection) 10 mg Q6HP PRN IV NAUSEA OR VOMITING; Start 09/18/17 at 19:00; Stop 09/18/17 at 20:00; Status DC Metronidazole 500 mg/IV Miscellaneous Supplies 100 ml @ 100 mls/hr Q8H IV Last administered on 09/22/17 08:16; Start 09/19/17 at 01:00; Stop 09/26/17 at 00:59 Morphine Sulfate (Morphine Sulfate Inj) 4 mg Q2HP PRN IV SEVERE PAIN (PS 8-10) ; Start 09/17/17 at 23:00; Stop 09/24/17 at 22:59 Ondansetron HCl (ZOFRAN INJection) 4 mg Q4HP PRN IV NAUSEA OR VOMITING; Start 09/18/17 at 19:00; Stop 09/18/17 at 20:00; Status DC Ondansetron HCl (ZOFRAN INJection) 4 mg Q4HP PRN IV NAUSEA OR VOMITING; Start 09/20/17 at 20:15; Stop 09/20/17 at 21:45; Status DC Ondansetron HCl (ZOFRAN INJection) 4 mg Q6HP PRN IV NAUSEA OR VOMITING; Start 09/17/17 at 23:00; Stop 10/17/17 at 22:59 Oxycodone/ Acetaminophen (Percocet 5mg/ 325mg Tablet) 1 tab ASDIRECTED PRN PO MILD/MODERATE PAIN (PS 1-7); Start 09/18/17 at 19:00; Stop 09/18/17 at 20:00; Status DC Pantoprazole Sodium (Protonix) 40 mg DAILY IV Last administered on 09/22/17t 08 :16; Start 09/18/17 at 09:00; Stop 10/18/17 at 08:59 Allergies Coded Allergies: No Known Drug Allergy (Verified Allergy, Unknown, 03/14/17) Objective Physical Examination Examination GENERAL APPEARANCE:[Patient seen, laying in bed, awake, alert, and oriented. Comfortable, in no acute distress]. SKIN: [Warm and moist]. HEENT: [Normocephalic, atraumatic. [place] palpebral conjunctiva, anicteric sclerae. Lips and mucosa appear moist]. NECK: [Supple, no thyromegaly. No obvious jugular venous distention]. LUNGS: [Clear to auscultation bilaterally. No wheezing appreciated]. HEART: [No chest wall abnormalities. Regular rate and rhythm with no murmurs appreciated]. ABDOMEN: Abdomen is minimally distended, soft, round. And nontender over the right lower quadrant area. Left lower quadrant AIDE drain with nonclotting, bloody fluid.. EXTREMITIES: [Extremities have no deformities. No edema identified]. Vital Signs Vital Signs Date Time Temp Pulse Resp B/P (MAP) Pulse Ox O2 Delivery O2 Flow Rate FiO2 09/22/17 08:00 99.2 101 18 144/89 (107) 98 Room Air 09/18/17 18:41 10 I&Os I&O- Last 24 Hours up to 6 AM 09/23/17 06:00 Intake Total 0 ml Output Total 20 ml Balance -20 ml AIDE drainage 135 yesterday, 45 mL overnight - bloody, nonclotting, thin Laboratory Data Labs 24H Laboratory Tests 2 09/22/17 05:59: Nucleated Red Blood Cells % (auto) 0.0 CBC/BMP Laboratory Tests 09/22/17 05:59 Red Blood Count 2.94 L, Mean Corpuscular Volume 95.2, Mean Corpuscular Hemoglobin 31.6, Mean Corpuscular Hemoglobin Concent 33.2, Red Cell Distribution Width 14.2 Impression Chronic appendicitis status post laparoscopic appendectomy Postoperative bleeding and hematoma most likely from the appendiceal artery that retracted into the mesentery status post take back to the OR. At the time I took her back, no further active bleeding though due to the amount of raw surface from the initial bleed some mild oozing at the right gutter Stable postop Postoperative anemia from bleeding stable I think she is stable enough to go home I will send her home with the drain she was instructed to note the amount of output and drain and let me know if that has increased in amount. He'll have one of my partners see her again in a week and see if the drain can be removed. Repeat CBC on follow-up. Plan / VTE VTE Prophylaxis Ordered?: No VTE Exclusion Pharmacological: Other ZULEIKA SALGADO MD Sep 22, 2017 09:47
[2017-09-22] MEDS ORDERED: NORCOTAB PO (09:56)
[2017-09-22] MEDS ORDERED: FERR325T16 PO (09:56)
== END 2017-09-22 11:32 | disposition home or self-care (01) | DRG 225 ==
LOC: M ED 18:33 → M ED INP 22:50 → M PED 09-18 01:20 → M MS4PR 09-19 06:34 → M PED 09-21 20:25
PROVIDERS: ADMIT Surgery; ATTEND Surgery
PROC: 0DTJ4ZZ Resection of Appendix, Percutaneous Endoscopic Approach (ICD-10-PCS; principal; 2017-09-18 08:28)
PROC: 0DCW4ZZ Extirpation of Matter from Peritoneum, Percutaneous Endoscopic Approach (ICD-10-PCS; 2017-09-20)
PROC: 30233N1 Transfusion of Nonautologous Red Blood Cells into Peripheral Vein, Percutaneous Approach (ICD-10-PCS; 2017-09-20)
DX: K36 Other appendicitis (principal); D62 Acute posthemorrhagic anemia; K91.870 Postprocedural hematoma of a digestive system organ or structure following a digestive system procedure; K91.840 Postprocedural hemorrhage of a digestive system organ or structure following a digestive system procedure

== ENCOUNTER → 2018-08-17 | Outpatient (CLI) | payer BC | LOC: M WUC 13:41 | DX: M25.541 Pain in joints of right hand (principal) | CPT/HCPCS: 73130 ==